=== PATIENT | female | born 1965 | race Caucasian/White ===

== ENCOUNTER 2023-09-12 08:02 | Day surgery (SDC) | payer BC ==
[~2023-09-12] VITALS: Ht 165.1 cm; Wt 54.4 kg
[2023-09-12] MEDS: CEFAZOLIN SOD 2 GM in D5W 50 ML IV ONE (07:00)
[2023-09-12] MEDS: GABAPENTIN 300 MG CAPSULE PO ONE (07:00)
[2023-09-12] MEDS: ACETAMINOPHEN 500 MG TABLET ONE (08:11)
[2023-09-12] MEDS: GABAPENTIN 300 MG CAPSULE ONE (08:40)
[2023-09-12] MEDS: ACETAMINOPHEN 500 MG TABLET PO ONE (08:40)
[2023-09-12] MEDS ORDERED: BUPIVACAINE /DEX PF 0.75% SPINAL 2 ML AMP INJ ONE (09:55)
[2023-09-12] MEDS: MIDAZOLAM HCL 2 MG/2 ML VIAL (VERSED) ONE (10:07)
[2023-09-12] MEDS ORDERED: traMADol HCL HCL 50 MG TABLET (ULTRAM) PO PRN (11:00)
[2023-09-12] MEDS ORDERED: HYDROmorphone 1 MG/ML INJ. CARTRIDGE IVP PRN ×3 (11:00→11:30)
[2023-09-12] MEDS ORDERED: LORATADINE 10 MG TABLET PO PRN (11:00)
[2023-09-12] MEDS ORDERED: hydrALAZINE HCL 20 MG/ML VIAL IV PRN (11:30)
[2023-09-12] MEDS ORDERED: ONDANSETRON HCL 4 MG/2 ML VIAL IVP PRN (11:30)
[2023-09-12] MEDS ORDERED: NALOXONE HCL 0.4 MG/ML AMP (NARCAN) IVP PRN (11:30)
[2023-09-12] MEDS: CEFEPIME 1 GM in D5W 100 ML IV ONE (12:45)
[2023-09-12] MEDS: oxyCODONE HCL 5 MG TABLET ONE (15:51)
[2023-09-12] MEDS ORDERED: OXYCODONE/ACETAMINOPHEN 5-325 TABLET PO ONE (16:30)
[2023-09-12] MEDS: oxyCODONE HCL 5 MG TABLET PO ONE (16:35)
[2023-09-12] MEDS: HYDROmorphone 1 MG/ML INJ. CARTRIDGE ONE (16:36)
[2023-09-12 17:34] VITALS: BP_SYST 167; PULSE 68; RESP 18; TEMP 97.9
[2023-09-12] MEDS: HYDROmorphone 1 MG/ML INJ. CARTRIDGE IVP PRN ×3 (18:00→22:41)
[2023-09-12] MEDS ORDERED: MULT-1089 PO (18:14)
[2023-09-12] MEDS ORDERED: BIOT5TAB PO (18:14)
[2023-09-12 20:00] VITALS: BP_SYST 162; PULSE 88; RESP 18; TEMP 97.7; O2SAT 99
[2023-09-12] MEDS ORDERED: METOCLOPRAMIDE HCL 10 MG/2 ML VIAL IVP PRN (22:00)
[2023-09-12] MEDS ORDERED: BISACODYL 10 MG/SUPPOSITORY RC PRN (22:00)
[2023-09-12] MEDS ORDERED: DIPHENHYDRAMINE HCL 25 MG CAPSULE PO PRN (22:00)
[2023-09-12] MEDS: SENNOSIDES/DOCUSATE SODIUM 1 TAB TABLET(SENOKOT-S) PO SCH (22:39)
[2023-09-12] MEDS: ACETAMINOPHEN 500 MG TABLET PO SCH (22:40)
[2023-09-13] VITALS: BP_SYST 161; PULSE 86; RESP 18; TEMP 98.9; O2SAT 98
[2023-09-13] MEDS: ONDANSETRON HCL 4 MG/2 ML VIAL IVP PRN (01:25)
[2023-09-13] MEDS: KETOROLAC TROMETHAMINE 10 MG TABLET (TORADOL) PO SCH (06:00)
[2023-09-13] MEDS: oxyCODONE HCL 5 MG TABLET PO PRN (06:32)
[2023-09-13 08:00] VITALS: BP_SYST 158; PULSE 99; RESP 20; TEMP 98; O2SAT 98
[2023-09-13 08:25] VITALS: O2SAT 97
[2023-09-13] MEDS: ASPIRIN 81 MG TAB.CHEW PO SCH (08:54)
[2023-09-13] MEDS: CELECOXIB 200 MG CAPSULE PO SCH (12:37)
[2023-09-13] MEDS ORDERED: OXYIR5 PO (17:31)
[2023-09-13 19:23] VITALS: BP_SYST 149; PULSE 102; RESP 18; TEMP 99.3; O2SAT 96
== END 2023-09-13 20:20 | disposition home or self-care (01) ==
LOC: SDS 08:02 → SMU 08:03 → SDS 09-13 20:20
PROVIDERS: ATTEND Orthopaedic Surgery Sports Medicine
DX: M17.11 Unilateral primary osteoarthritis, right knee (principal); M25.761 Osteophyte, right knee; M25.561 Pain in right knee; I10 Essential (primary) hypertension; Z98.891 History of uterine scar from previous surgery; Z98.890 Other specified postprocedural states
CPT/HCPCS: 27447; 97162 ×2; 64447; 87081; 93005; 73560; 97110 ×2; 97530 ×2; 97116 ×2; 88305; 88311; 96379; J3490 ×2; J0690; J3465; J2405; J2704; J3370; J1170 ×2; J7060 ×2; J7120; J7030; C1713 ×2; C1776; J0692